=== PATIENT | female | born 1955 | race Hispanic/Latino ===

== ENCOUNTER → 2019-01-19 | Outpatient (CLI) | payer OTHER | END | disposition home or self-care (01) | LOC: RAH 09:21 | PROVIDERS: ATTEND Family Medicine | DX: Z12.31 Encounter for screening mammogram for malignant neoplasm of breast (principal) | CPT/HCPCS: 77067 ==

== ENCOUNTER → 2020-03-11 | Outpatient (CLI) | payer OTHER | END | disposition home or self-care (01) | LOC: LAB 12:45 | PROVIDERS: ATTEND Internal Medicine Cardiovascular Disease | DX: U07.1 COVID-19 (principal) | CPT/HCPCS: C9803; U0003 ==

== ENCOUNTER → 2021-09-03 | Outpatient (CLI) | payer BC | END | disposition home or self-care (01) | LOC: ICE 10:00 | PROVIDERS: ATTEND Hospitalist | DX: Z20.822 Contact with and (suspected) exposure to COVID-19 (principal) | CPT/HCPCS: 87635; C9803 ==

== ENCOUNTER → 2021-10-12 | Outpatient (CLI) | payer BC, OTHER | END | disposition home or self-care (01) | LOC: LAB 09:45 | PROVIDERS: ATTEND Hospitalist | DX: Z20.822 Contact with and (suspected) exposure to COVID-19 (principal) | CPT/HCPCS: 87426 ==

== ENCOUNTER → 2021-11-10 | Outpatient (CLI) | payer OTHER | END | disposition home or self-care (01) | LOC: LAB 12:28 | PROVIDERS: ATTEND Hospitalist | DX: U07.1 COVID-19 (principal) | CPT/HCPCS: 87426 ==

== ENCOUNTER → 2022-02-24 | Outpatient (CLI) | payer BC, OTHER | END | disposition home or self-care (01) | LOC: RAH 07:57 | PROVIDERS: ATTEND Family Medicine | DX: Z12.31 Encounter for screening mammogram for malignant neoplasm of breast (principal) | CPT/HCPCS: 77067 ==

== ENCOUNTER 2022-09-18 21:59 | Emergency (ER) | payer BC ==
[~2022-09-18] VITALS: Ht 154.9 cm; Wt 81.2 kg
[2022-09-18 22:59] LABS: APPEARANCE,URINE CLEAR (CLEAR); BILIRUBIN,URINE NEGATIVE (NEGATIVE); COLOR,URINE LIGHT-YELLOW (YELLOW); GLUCOSE, URINE (UA) NEGATIVE (NEGATIVE); KETONES,URINE NEGATIVE (NEGATIVE); LEUKOCYTE ESTERASE ,URINE 500 Leu/uL (NEGATIVE); NITRATE,URINE NEGATIVE (NEGATIVE); OCCULT BLOOD,URINE NEGATIVE (NEGATIVE); PROTEIN,URINE NEGATIVE (NEGATIVE); UROBILINOGEN,URINE 0.2 mg/dL (0.2-1.0)
[2022-09-18 23:17] LABS: MUCUS,URINE RARE LPF (None Seen); SQUAMOUS EPITHELIAL CELL,UR RARE /HPF (0-2); WBC,URINE 51-100 /HPF (0-1)
[2022-09-18 23:21] LABS: BASOPHILS % (AUTO) 0.5 % (0.0-5.0); EOSINOPHILS % (AUTO) 2.5 % (0.0-8.0); HEMATOCRIT 43.1 % (36-48); LYMPHOCYTES % (AUTO) 37.7 % (21.0-51.0); MEAN CORPUSCULAR HEMOGLOBIN 30.6 pg (27.0-33.0); MEAN CORPUSCULAR HGB CONC 32.9 g/dL (32.0-36.0); MEAN CORPUSCULAR VOLUME 92.9 fL (79-99); MONOCYTES % (AUTO) 7.1 % (3.0-13.0); NEUTROPHILS % (AUTO) 51.8 % (40.0-77.0); PLATELET COUNT (AUTO) 275 K/uL (130-400); RED BLOOD CELL COUNT(AUTO) 4.64 MIL/uL (4.00-5.50); RED CELL DISTRIBUTION WIDTH 13.5 % (11.0-15.5); WHITE BLOOD COUNT (AUTO) 7.7 K/uL (4.8-10.8)
[2022-09-18] MEDS ORDERED: ONDANSETRON 4MG INJ IVP ONE (23:30)
[2022-09-18] MEDS ORDERED: MORPHINE 4 MG SYG IVP ONE (23:30)
[2022-09-18] MEDS ORDERED: CEFTRIAXONE 2GM VIAL IVPB ONE (23:30)
[2022-09-18] MEDS ORDERED: 0.9%NACL 1000ML 1,000 ML IV SCH (23:30)
[2022-09-18 23:36] LABS: CREATININE 1.1 mg/dL (0.5-1.5); POTASSIUM 4.2 mmol/L (3.5-5.1)
[2022-09-18 23:41] LABS: ALBUMIN 3.9 g/dL (3.5-5.0); TOTAL PROTEIN, SERUM 8.6 g/dL (6.0-8.3)
[2022-09-18] MEDS ORDERED: IOHEXOL-350 75 ML VIAL IV ONE (23:49)
[2022-09-19] MEDS ORDERED: CEPH500B PO (02:39)
[2022-09-19 04:28] VITALS: BP 118/79
== END 2022-09-19 04:39 | disposition home or self-care (01) ==
LOC: EDH 21:59
DX: N39.0 Urinary tract infection, site not specified (principal); Z90.49 Acquired absence of other specified parts of digestive tract; Z20.822 Contact with and (suspected) exposure to COVID-19
CPT/HCPCS: 99284; 74178; 96365; 96375; 87635; 84484; 80053; 83690; 85025; 87088; 87804 ×2; 83605; 81001; 36415; 93005; 96366; C9803; J7030; J0696; J2405; J2270; Q9967

== ENCOUNTER → 2024-02-17 | Outpatient (CLI) | payer BC, MEDICARE ==
[~2024-02-17] MED LIST: CEPH500B PO
--- NOTE | 2024-02-17 10:00 | HMCIMG ---
MAMMO SCREENING BILATERAL HISTORY: Screening mammogram. COMPARISON: 02/24/2022 TECHNIQUE: Bilateral screening mammogram with CAD was performed with craniocaudal and mediolateral oblique projections. FINDINGS: The breasts are heterogeneous dense, which may obscure small masses. There is no evidence of a dominant mass, or suspicious microcalcification. There is no evidence of nipple retraction or skin thickening. IMPRESSION: 1. Stable mammogram. Patient was entered into a reminder system with a target due date for their next mammogram. BI-RADS: CATEGORY 2: BENIGN FINDINGS Recommend monthly self breast exam as well as annual clinical examination. A negative x-ray should not delay biopsy if a dominant or clinically suspicious mass is present, since 8-10% of cancers are not identified by mammography. Dense breasts particularly, may obscure an underlying neoplasm. Some of these may be detected clinically and therefore, clinical examination is an essential part of breast evaluation.
== END | disposition home or self-care (01) ==
LOC: RAH 07:57
PROVIDERS: ATTEND Family Medicine
DX: Z12.31 Encounter for screening mammogram for malignant neoplasm of breast (principal); R92.333 Mammographic heterogeneous density, bilateral breasts
CPT/HCPCS: 77067

== ENCOUNTER 2024-04-06 21:05 | Emergency (ER) | payer BC, MEDICARE ==
[~2024-04-06] VITALS: Ht 154.9 cm; Wt 74.4 kg
--- NOTE | 2024-04-06 21:31 | ERN ---
ED Note History of Present Illness Stated Complaint: HTN, BLURRY VISION Chief Complaint: Blurred/Double Vision Time Seen by MD: 21:07 Time Seen by Midlevel: 21:07 Dictation: The patient is a 68-year-old female with a history of prediabetes, cholecystec michelle, recently started on lisinopril 20 mg for elevated blood pressure 1 week ago who presents to the emergency department with complaints of frontal nontraumatic headache associated with dizziness although reports dizziness started since the beginning of March. Patient reports she checked her blood pressure around 5:00 p.m. and was 150/76 so she decided to take her lisinopril b ut reports no improving blood pressure. Patient also reports she feels like she can not concentrate her eyes on further objects. Reports no blurry vision or double vision on items right in front of her. Patient denies any chest pain, shortness of breath, fevers, use of blood thinners, nausea or vomiting. Allergies: Coded Allergies: No Known Drug Allergies (Unverified Allergy, Unknown, 02/28/14) Home Meds Active Scripts Loratadine (Loratadine) 10 Mg Tablet, 1 TAB PO DAILY for allergy symptoms for 30 Days, #30 TAB 0 Refills Prov:DARION WOODWARD SMALL ENGINE SPECIALIST 04/07/24 Fluticasone Propionate (Flonase Nasal [place]) 50 Mcg/Actuation [place], 2 SPRAY NS DAILY, #16 GM 0 Refills Prov:DARION WOODWARD SMALL ENGINE SPECIALIST 04/07/24 Amoxicillin/Potassium Clav (Amox Tr-K Clv 875-125 mg Tab) 875 Mg-125 Mg Tablet, 1 TAB PO BID for 10 Days, #20 TAB 0 Refills Prov:DARION WOODWARD SMALL ENGINE SPECIALIST 04/07/24 Cephalexin Monohydrate (Keflex) 500 Mg Cap, 500 MG PO QID for 7 Days, #28 CAP Prov:DORIS TUBBS Sr., MD 09/19/22 Past Medical History Past Medical History: No Pertinent History, Other Additional Past Medical Hx: PRE DM Surgical History: Cholecystectomy RN Note Reviewed/Agreed w/PFSH: Yes Review of System Dictation Constitutional: Negative for fever,chills, and weight loss Eyes: Negative for injury, pain,redness, and discharge ENT: Negative for injury,pain or swelling Cardiovascular: Negative for chest pain, palpitations, and edema Respiratory: Negative for shortness of breath, and wheezing, positive for cough Abdomen/GI: Negative for abdominal pain, nausea, vomiting, diarrhea, and constipation Back: Negative for injury and pain : Negative for injury, bleeding and discharge MS/Extremity: Negative for injury and deformity Skin: Negative for rash, and discoloration Neuro: Negative for weakness, numbness, tingling, and seizure positive for headache, dizziness Psych: Negative for suicide ideation, homicidal ideation, and hallucinations Initial Vital Sign VS Vital Signs Date Time Temp Pulse Resp B/P (MAP) Pulse Ox O2 Delivery O2 Flow Rate FiO2 04/06/24 21:06 97.3 90 20 164/105 99 Room Air 04/07/24 01:20 0 21 Physical Exam Dictation Vital Signs reviewed General Appearance: Alert, oriented x 3, no acute distress, well developed, nourished. Head and Face: non-traumatic. Eyes: PERRL, pink conjunctivas, eyelid no trauma, anterior chamber with arcus senilis. Ears: Pinnas intact and no signs of trauma or erythema ear canals clear and no discharge TM no erythema Nose: No discharge, no bleeding. Oropharynx: Mouth normal, tongue pink. pharynx clear,no erythema, tonsils no exudates, no abscesses noted, mucous membrane moist Neck: Supple, non-tender, no thyromegaly, no masses, no JVD, no bruits Breast:Deferred Chest:No tenderness, no crepitus, no paradoxical movement, no retractions Lungs:Clear, well-ventilated, symmetric, no rales, no wheezing, no rhonchi, no stridor, good breath sounds bilaterally Heart: Regular rate, regular rhythm, no murmur, no gallops Vascular: no peripheral edema, Abdomen: Soft, positive bowel sounds, nondistended, no guarding, nontender, no rebound, no masses no hepatomegaly, no splenomegaly, no Almanza's sign, no hernias. Rectal: Deferred Genital: Deferred Neurological: Normal speech, motor function intact, sensory function intact , upper extremities equal and strength, lower extremities equal and strength, no facial droop, no slurred speech, NIH 0 Musculoskeletal: Neck nontender, full range of motion, back nontender, full range of motion, Extremities: nontender, full range of motion Skin: Color pink, dry, no turgor, no rash, no lacerations, no abrasions, no contusions. Lymphatic: Deferred Results (Laboratory/Radiology) Laboratory/Radiology Laboratory Tests Test 04/06/24 21:36 04/06/24 21:43 White Blood Count 7.5 K/uL (4.8-10.8) Red Blood Count 4.50 MIL/uL (4.00-5.50) Hemoglobin 13.9 g/dL (12.0-16.0) Hematocrit 42.1 % (36-48) Mean Corpuscular Volume 93.6 fL (79-99) Mean Corpuscular Hemoglobin 30.9 pg (27.0-33.0) Mean Corpuscular Hemoglobin Concent 33.0 g/dL (32.0-36.0) Red Cell Distribution Width 12.4 % (11.0-15.5) Platelet Count 309 K/uL (130-400) Mean Platelet Volume 9.8 fL (7.5-10.5) Immature Granulocyte % (Auto) 0.1 % (0-1) Neutrophils (%) (Auto) 54.7 % (40.0-77.0) Lymphocytes (%) (Auto) 36.5 % (21.0-51.0) Monocytes (%) (Auto) 5.7 % (3.0-13.0) Eosinophils (%) (Auto) 2.5 % (0.0-8.0) Basophils (%) (Auto) 0.5 % (0.0-5.0) Neutrophils # (Auto) 4.1 K/uL (1.8-7.7) Lymphocytes # (Auto) 2.7 K/uL (1.0-4.8) Monocytes # (Auto) 0.4 K/uL (0.1-1.0) Eosinophils # (Auto) 0.19 K/uL (0.00-0.70) Basophils # (Auto) 0.04 K/uL (0.00-0.20) Absolute Immature Granulocyte (auto 0.01 K/uL (0-1) Nucleated Red Blood Cells 0.0 % (0.0-0.19) Sodium Level 138 mmol/L (136-145) Potassium Level 3.9 mmol/L (3.5-5.1) Chloride Level 102 mmol/L (101-111) Carbon Dioxide Level 29 mmol/L (21-32) Blood Urea Nitrogen 18 mg/dL (7-18) Creatinine 0.8 mg/dL (0.5-1.0) Glomerular Filtration Rate Calc 81 mL/min (>90) Random Glucose 113 mg/dL (70-105) H Total Calcium 9.3 mg/dL (8.5-10.1) Total Creatine Kinase 90 U/L (21-232) Troponin I High Sensitivity < 4 ng/L (4-50) L B-Type Natriuretic Peptide 13 pg/mL (0-100) Urine Color COLORLESS (YELLOW) Urine Appearance CLEAR (CLEAR) Urine pH 5.5 (5.0-8.0) Urine Specific [place] 1.012 (1.001-1.031) Urine Protein NEGATIVE mg/dL (NEGATIVE) Urine Glucose (UA) NEGATIVE mg/dL (NEGATIVE) Urine Ketones NEGATIVE mg/dL (NEGATIVE) Urine Occult Blood NEGATIVE (NEGATIVE) Urine Nitrate NEGATIVE (NEGATIVE) Urine Bilirubin NEGATIVE mg/dL (NEGATIVE) Urine Urobilinogen 0.2 mg/dL (0.2-1.0) Urine Leukocyte Esterase NEGATIVE Aiden/uL REASON: headache ORDERING PHYSICIAN: DARION WOODWARD PROCEDURE: HEAD WO - CT HEAD/BRAIN W/O CONTRAST CT HEAD/BRAIN W/O CONTRAST HISTORY: Headaches COMPARISON: None TECHNIQUE: Multiple sequential axial images of the head were obtained from the base of the skull through vertex. Patient was not given contrast through intravenous route. FINDINGS: The ventricles and extraventricular CSF spaces are nondilated for patient's age. There is no midline shift, mass effect or herniation. No acute intracranial bleed is seen. There are bilateral ethmoid and maxillary sinusitis with mucoperiosteal thickening. IMPRESSION: 1. No acute intracranial bleed is seen. Bilateral ethmoid and maxillary sinusitis. CT was performed with one or more following dose reduction techniques: automated exposure control, adjustment of the mA and kv according to patient's size, or use of a iterative reconstruction technique. Labs Reviewed?: Yes EKG: (+) rhythm (Sinus rhythm) EKG Comment: Date:04/06/2024 Time:2134 Ventricular rate:72 WV interval:149 QRS duration:87 QT/QTc:384 EKG interpretation: Sinus rhythm Reviewed by ED Attending no STEMI ED Course ED Course Orders Procedure Category Date Status Time Cbc With Differential LAB 04/06/24 Complete 21:24 Chest 1vw RAD 04/06/24 Taken 21:24 12 Lead Ekg Tracing- EKG 04/06/24 Complete Technical 21:24 0.9%Nacl 1000ml (Ns PHA 04/06/24 Complete 1000ml) 21:30 Acetaminophen 500mg PHA 04/06/24 Complete Tab (Tylenol 500mg T 21:30 Creatine Kinase, Total LAB 04/06/24 Complete 21:24 Troponin I High LAB 04/06/24 Complete Sensitivity 21:24 Urinalysis Profile LAB 04/06/24 Complete 21:24 Basic Metabolic Panel LAB 04/06/24 Complete 21:24 Ct Head/Brain W/O CT 04/06/24 Resulted Contrast 21:24 Covid19 (Sars Antigen LAB 04/06/24 Logged Rapid) 21:24 Influenza Type A & B, LAB 04/06/24 Logged Rapid 21:24 B-Type Natriuretic LAB 04/06/24 Complete Peptide 21:24 Metoclopramide 10 PHA 04/06/24 Complete Mg/2 Ml Vial (Reglan 1 21:30 Diphenhydramine Hcl PHA 04/06/24 Complete (Benadryl Inj) 21:30 Benzonatate 100 Mg PHA 04/06/24 Complete Capsule (Tessalon 100 23:30 Dexamethasone 4mg/Ml PHA 04/07/24 Complete 1ml Vial (Dexametha 00:00 Meclizine Hcl 25 Mg PHA 04/07/24 Complete (Antivert 25 Mg) 01:00 Current Medications Medications (Trade) Dose Ordered Sig/Won Route PRN Reason Start Time Stop Time Status Last Admin Dose Admin Acetaminophen (TYLenol 500MG TAB) 1,000 mg ONCE ONCE PO 04/06/24 21:30 04/06/24 21:31 DC 04/07/24 01:13 Benzonatate (Tessalon 100mg Caps) 100 mg ONCE ONCE PO 04/06/24 23:30 04/06/24 23:31 DC 04/07/24 01:12 Dexamethasone Sodium Phosphate (dexaMETHasone 4MG/ML 1ML VIAL) 6 mg ONCE ONCE IVP 04/07/24 00:00 04/07/24 00:01 DC 04/07/24 01:13 Diphenhydramine HCl (BENAdryl INJ) 25 mg ONCE ONCE IV 04/06/24 21:30 04/06/24 21:31 DC 04/07/24 01:13 Meclizine HCl (ANTIvert 25 mg) 25 mg ONCE ONCE PO 04/07/24 01:00 04/07/24 01:01 DC 04/07/24 01:12 Metoclopramide HCl (regLAN 10MG IV) 10 mg ONCE ONCE IVP 04/06/24 21:30 04/06/24 21:31 DC 04/07/24 01:13 Sodium Chloride 1,000 ml @ 0 mls/hr ONCE ONCE IV 04/06/24 21:30 04/06/24 21:31 DC 04/07/24 01:14 Vital Signs Date Time Temp Pulse Resp B/P (MAP) Pulse Ox O2 Delivery O2 Flow Rate FiO2 04/07/24 01:20 98.1 66 16 155/57 98 Room Air* 0 21 04/06/24 21:06 97.3 90 20 164/105 99 Room Air Medical Decision Making [facility] The patient is a 68-year-old female with a history of prediabetes, cholecystectomy, recently started on lisinopril 20 mg for elevated blood pressure 1 week ago who presents to the emergency department with complaints of frontal nontraumatic headache associated with dizziness although reports dizziness started since the beginning of March. Patient reports she checked her blood pressure around 5:00 p.m. and was 150/76 so she decided to take her l isinopril but reports no improving blood pressure. Patient also reports she feels like she can not concentrate her eyes on further objects. Reports no blurry vision or double vision on items right in front of her. Patient denies any chest pain, shortness of breath, fevers, use of blood thinners, nausea or vomiting. CBC showed no leukocytosis, no anemia, chemistry showed no electrolyte imbalance, negative troponin, leukocyte esterase unremarkable. CT head showed no acute intracranial bleeding, sinusitis. Chest x-ray with no acute pathology, EKG with no STEMI. Patient reports no longer having any headache. Continues neurologically intact. Patient's cough probably related to lisinopril which she was seen by telemedicine and told to stop it. Patient in no acute distress, nontoxic appearance will be discharged to follow up with PCP. Differential diagnosis: Pneumonia, ACS, intracranial hemorrhage, electrolyte imbalance, dehydration, drug reactions Need for hospitalization: Patient does not meet criteria for hospitalization. There are no social concerns with this patient. DX & DISP Disposition: Discharge Departure Impression: Primary Impression: Headache Additional Impressions: Cough due to KULDEEP inhibitor, Sinusitis Condition: Stable Scripts Loratadine (Loratadine) 10 Mg Tablet 1 TAB PO DAILY for allergy symptoms for 30 Days, #30 TAB 0 Refills Prov: DARION WOODWARD NICOLASA 04/07/24 Fluticasone Propionate (Flonase Nasal [place]) 50 Mcg/Actuation [place] 2 SPRAY NS DAILY, #16 GM 0 Refills Prov: DARION WOODWARD NICOLASA 04/07/24 Amoxicillin/Potassium Clav (Amox Tr-K Clv 875-125 mg Tab) 875 Mg-125 Mg Tablet 1 TAB PO BID for 10 Days, #20 TAB 0 Refills Prov: DARION WOODWARD NICOLASA 04/07/24 Additional Instructions: Please follow up with your primary doctor in 1-2 days. Please return to ER if symptoms worsen. Your cough is probably due to the lisinopril. Take medications as prescribed. FOLLOW-UP WITH PRIMARY CARE PROVIDER IN 1 TO 2 DAYS. TAKE MEDICATIONS DIRECTED HERE IN THE EMERGENCY ROOM. OKAY TO CONTINUE HOME MEDICATIONS UNLESS OTHERWISE DISCUSSED DURING YOUR VISIT IN THE EMERGENCY ROOM TODAY. RETURN TO YOUR NEAREST EMERGENCY ROOM IF SYMPTOMS WORSEN OR IF THERE IS NO IMPROVEMENT. CALL 911 IF YOU NEED IMMEDIATE ASSISTANCE. TAKE TYLENOL OR MOTRIN [id number] NEEDED AND IF NO CONTRAINDICATIONS ARE PRESENT. INCREASE ORAL HYDRATION. A WOUND CULTURE OR URINE CULTURE WAS ORDERED HERE IN THE EMERGENCY ROOM DEPARTMENT PLEASE FOLLOW-UP WITH PRIMARY CARE PROVIDER AND ADVISE THEM TO GET REPEAT PORTS FROM OUR FACILITY. IF YOU HAD ANY KULDEEP WRAP/SPLINTS THAT WERE APPLIED HERE, PLEASE DO NOT REMOVE THEM UNTIL YOU SEE YOUR PRIMARY CARE OR SPECIALTY. Referrals: WILLIAM PEACE DO (PCP) Time of Disposition: 02:25 I have reviewed the case, and I agree with, Diagnosis and Plan DARION WOODWARD NICOLASA Apr 06, 2024 21:31
--- NOTE | 2024-04-06 21:39 | EKG ---
[facility] Test Date: 2024-04-06 Test Time: 21:35:49 Pat Name: WILL MONTES Department: [facility] Room: Gender: F Numerical Tool Programmer: [id number] : 1955 Requested By: DARION WOODWARD Order Number: [id number] Reading MD: Norma Kenny Measurements Intervals [place] Rate: 72 P: 32 KS: 149 QRS: -24 QRSD: 87 T: 4 QT: 384 QTc: 421 Interpretive Statements Sinus rhythm Low voltage, precordial leads Poor R wave progression Compared to ECG 09/18/2022 22:48:26 Low QRS voltage now present Left ventricular hypertrophy now present Q waves now present Electronically Signed On 04-09-2024 15:58:05 BOILERS AND PRESSURE VESSELS INSPECTOR by Norma Kenny Please click the below link to view image of tracing.
[2024-04-06 21:42] LABS: BASOPHILS # (AUTO) 0.04 K/uL (0.00-0.20); BASOPHILS % (AUTO) 0.5 % (0.0-5.0); EOSINOPHILS # (AUTO) 0.19 K/uL (0.00-0.70); EOSINOPHILS % (AUTO) 2.5 % (0.0-8.0); HEMATOCRIT 42.1 % (36-48); IMMATURE GRANULOCYTE ABSOLUTE 0.01 K/uL (0-1); LYMPHOCYTES # (AUTO) 2.7 K/uL (1.0-4.8); LYMPHOCYTES % (AUTO) 36.5 % (21.0-51.0); MEAN CORPUSCULAR HEMOGLOBIN 30.9 pg (27.0-33.0); MEAN CORPUSCULAR VOLUME 93.6 fL (79-99); MONOCYTES # (AUTO) 0.4 K/uL (0.1-1.0); MONOCYTES % (AUTO) 5.7 % (3.0-13.0); NEUTROPHILS # (AUTO) 4.1 K/uL (1.8-7.7); NEUTROPHILS % (AUTO) 54.7 % (40.0-77.0); PLATELET COUNT (AUTO) 309 K/uL (130-400); RED CELL DISTRIBUTION WIDTH 12.4 % (11.0-15.5); WHITE BLOOD COUNT (AUTO) 7.5 K/uL (4.8-10.8)
[2024-04-06 21:51] LABS: CREATININE 0.8 mg/dL (0.5-1.0); POTASSIUM 3.9 mmol/L (3.5-5.1)
[2024-04-06 22:02] LABS: B-TYPE NATRIURETIC PEPTIDE 13 pg/mL (0-100)
--- NOTE | 2024-04-06 22:08 | HMCIMG ---
CT HEAD/BRAIN W/O CONTRAST HISTORY: Headaches COMPARISON: None TECHNIQUE: Multiple sequential axial images of the head were obtained from the base of the skull through vertex. Patient was not given contrast through intravenous route. FINDINGS: The ventricles and extraventricular CSF spaces are nondilated for patient's age. There is no midline shift, mass effect or herniation. No acute intracranial bleed is seen. There are bilateral ethmoid and maxillary sinusitis with mucoperiosteal thickening. IMPRESSION: 1. No acute intracranial bleed is seen. Bilateral ethmoid and maxillary sinusitis. CT was performed with one or more following dose reduction techniques: automated exposure control, adjustment of the mA and kv according to patient's size, or use of a iterative reconstruction technique.
[2024-04-06 22:20] LABS: APPEARANCE,URINE CLEAR (CLEAR); BILIRUBIN,URINE NEGATIVE (NEGATIVE); COLOR,URINE COLORLESS (YELLOW); GLUCOSE, URINE (UA) NEGATIVE (NEGATIVE); KETONES,URINE NEGATIVE (NEGATIVE); LEUKOCYTE ESTERASE ,URINE NEGATIVE Leu/uL (NEGATIVE); NITRATE,URINE NEGATIVE (NEGATIVE); OCCULT BLOOD,URINE NEGATIVE (NEGATIVE); PH,URINE 5.5 (5.0-8.0); PROTEIN,URINE NEGATIVE (NEGATIVE); UROBILINOGEN,URINE 0.2 mg/dL (0.2-1.0)
[2024-04-06 22:31] LABS: ADD UA MICROSCOPIC NO
[2024-04-07] MEDS ORDERED: AMOX1TAB16 PO (01:11)
[2024-04-07] MEDS ORDERED: FLUT16H NS (01:11)
[2024-04-07] MEDS ORDERED: LORA10TA7 PO (01:11)
[2024-04-07] MEDS: mecliZINE HCL 25 MG TABLET PO ONE (01:12)
[2024-04-07] MEDS: BENZONATATE 100 MG CAPSULE PO ONE (01:12)
[2024-04-07] MEDS: metoCLOPRAmide 10 MG/2 ML VIAL IVP ONE (01:13)
[2024-04-07] MEDS: DiphenhydrAMINE HCL 50 MG/ML VIAL IV ONE (01:13)
[2024-04-07] MEDS: dexaMETHasone SOD PHOSPHATE 4 MG/ML 1ML VIAL IVP ONE (01:13)
[2024-04-07] MEDS: acetaMINOPHEN 500 MG TABLET PO ONE (01:13)
[2024-04-07] MEDS: 0.9%NACL 1000ML 1,000 ML IV ONE (01:14)
[2024-04-07 01:20] VITALS: TEMP 98.1
[2024-04-07 02:47] VITALS: BP 147/48; PULSE 65; RESP 16; O2SAT 98
[2024-04-07 02:55] LABS: COVID19 (SARS ANTIGEN RAPID) PRESUMPTIVE NEGATIVE (NEGATIVE); INFLUENZA TYPE A Negative For Type A (NEGATIVE); INFLUENZA TYPE B Negative For Type B (NEGATIVE)
--- NOTE | 2024-04-07 08:15 | HMCIMG ---
PORTABLE CHEST RADIOGRAPH INDICATION: cough COMPARISON: 12/13/2016 FINDINGS: Heart size is normal. Mild calcific plaque is present along the aortic arch klein. The pulmonary vascularity and ashley appear normal. No abnormal pulmonary parenchymal opacity or consolidation identified. No significant pleural effusion noted. No pneumothorax detected. IMPRESSION: No radiographic evidence for any acute cardiopulmonary process.
== END 2024-04-07 03:11 | disposition home or self-care (01) ==
LOC: EDH 21:05
DX: R51.9 Headache, unspecified (principal); R05.9 Cough, unspecified; J32.9 Chronic sinusitis, unspecified; T46.4X5A Adverse effect of angiotensin-converting-enzyme inhibitors, initial encounter; Z90.49 Acquired absence of other specified parts of digestive tract; Z79.899 Other long term (current) drug therapy; Z20.822 Contact with and (suspected) exposure to COVID-19
CPT/HCPCS: 99284; 70450; 71045; 87426; 82550; 84484; 80048; 83880; 85025; 87804 ×2; 81003; 36415; 93005; 96374; 96375; 96361; J1100; J1200; J2765

== ENCOUNTER 2024-07-30 21:02 | Emergency (ER) | payer BC, MEDICARE ==
[~2024-07-30] VITALS: Ht 154.9 cm; Wt 75.3 kg
[~2024-07-30 21:02] MED LIST changes: +AMOX1TAB16 PO; +FLUT16H NS; +LORA10TA7 PO
--- NOTE | 2024-07-30 21:50 | ERN ---
General Chief Complaint: Mechanical Fall Stated Complaint: FALL Time Seen by MD: 21:15 Source: patient History of Present Illness Initial Comments Patient is relatively healthy 68-year-old female who was walking down some stairs at [employer] when she tripped lost her balance and fell the last three steps landing on concrete. There was no LOC. she is complaining of left hip pain b ilateral knee pain and left ankle pain. Allergies: Coded Allergies: No Known Drug Allergies (Unverified Allergy, Unknown, 02/28/14) Home Meds Active Scripts Loratadine (Loratadine) 10 Mg Tablet, 1 TAB PO DAILY for allergy symptoms for 30 Days, #30 TAB 0 Refills Prov:DARION WOODWARD NEW CAR MAKE READY MECHANIC 04/07/24 Fluticasone Propionate (Flonase Nasal [place]) 50 Mcg/Actuation [place], 2 SPRAY NS DAILY, #16 GM 0 Refills Prov:DARION WOODWARD NEW CAR MAKE READY MECHANIC 04/07/25 Amoxicillin/Potassium Clav (Amox Tr-K Clv 875-125 mg Tab) 875 Mg-125 Mg Tablet, 1 TAB PO BID for 10 Days, #20 TAB 0 Refills Prov:DARION WOODWARD NEW CAR MAKE READY MECHANIC 04/07/24 Cephalexin Monohydrate (Keflex) 500 Mg Cap, 500 MG PO QID for 7 Days, #28 CAP Prov:DORIS TUBBS Sr., MD 09/19/22 Past Medical History Past Medical History: Hypertension, Other Medical History Other: PRE DM Past Surgical History: Cholecystectomy Constitutional: (-) chills, (-) diaphoresis, (-) fever, (-) malaise, (-) weakness, (-) other documentation EENTM: (-) eye pain, (-) blurred vision, (-) tearing, (-) double vision, (-) ear pain, (-) ear discharge, (-) nose pain, (-) nose congestion, (-) throat pain, (-) Throat swelling, (-) mouth pain, (-) tooth pain, (-) mouth swelling, (-) other documentation Respiratory: (-) cough, (-) orthopnea, (-) short of breath, (-) stridor, (-) wheezing, (-) other documentation Gastrointestinal/Abdominal: (-) nausea, (-) vomiting, (-) diarrhea, (-) abd ominal pain, (-) abdominal distention, (-) constipation, (-) rectal bleeding, (- ) dark stool/melena, (-) other documentation Musculoskeletal: (-) Neck pain, (-) back pain, (-) Flank Pain, (-) joint pain, (-) joint swelling, (-) muscle pain, (-) muscle stiffness, (-) gout, (-) other documentation Skin: (-) laceration, (-) contusion, (-) abrasion, (-) abscess, (-) rash, (-) change in color, (-) change in hair, (-) change in nails, (-) diaphoresis, (-) dryness, (-) other documentation Physical Exam General Appearance: (+) no apparent distress Orientation: (+) alert, (+) oriented x 3 Head/Face Trauma: No Eye: bilateral eye normal inspection, bilateral eye PERRL, bilateral eye EOMI Ear, Nose, Throat: (+) hearing grossly normal, (+) normal ENT inspection Neck: (+) normal inspection, (+) supple, (+) full range of motion Respiratory: (+) chest non-tender, (+) lungs clear Heart: (+) regular, (+) no gallop Vascular: (+) no edema, (+) normal peripheral pulse Gastrointestinal: (+) soft, (+) non-tender, (+) bowel sound present Extremities Comment Patient's left ankle shows minimal swelling good pulses present no discoloration flexion extension and palpation along the left Achilles tendon show minimal pain. Patient's left knee is a negative anterior or posterior drawer sign. Also knee joint is stable to adduction or abduction indicating medial and lateral ligaments are intact. Patient does have pain in her left hip with p assive flexion and extension. However there are no obvious deformities. Patient's right knee has a similarly benign exam as the patient is left knee. MDM Plain films have been ordered for the patient's chest hip pelvis bilateral knees and ankles. Plain films of patient's left foot bilateral knees and pelvis are all negative for fractures and dislocations. Physical exam supports this finding. Patient can go home I talked to the patient about the best way to control the pain which is ibuprofen elevation and icing. The patient is glad there are no fractures and is happy to go home. ED Course Orders Procedure Category Date Status Time Chest 1vw RAD 07/30/24 Taken 21:17 Pelvis 1-2vws RAD 07/30/24 Taken 21:17 Knee 3vws Lt RAD 07/30/24 Taken 21:17 Knee 3vws Rt RAD 07/30/24 Taken 21:17 Ankle Comp 3vws Lt RAD 07/30/24 Taken 21:17 Vital Signs Date Time Temp Pulse Resp B/P (MAP) Pulse Ox O2 Delivery O2 Flow Rate FiO2 07/30/24 22:10 98.4 62 17 128/41 97 Room Air* 0 07/30/24 21:11 98.4 86 20 161/60 93 Room Air* 0 07/30/24 21:06 98.1 97 16 102/56 97 Room Air 0 DX & DISP Disposition: Discharge Departure Impression: Primary Impression: Fall (on) (from) other stairs and steps, initial encounter Additional Impression: Multiple leg contusions Condition: Stable Additional Instructions: Please follow-up with your primary care physician if after several days the pain has not improved. Again best that pain management would be icing the affected areas and taking ibuprofen. Referrals: WILLIAM PEACE DO (PCP) JANA RASMUSSEN MD July 30, 2024 21:50
[2024-07-30 23:23] VITALS: BP 135/50; PULSE 61; RESP 18; TEMP 98.2; O2SAT 96
--- NOTE | 2024-07-31 09:29 | HMCIMG ---
PELVIS 1-2VWS HISTORY: GLF COMPARISON: None TECHNIQUE: Frontal projection of the pelvis was obtained. FINDINGS: There is no acute displaced fracture or dislocation. Bilateral hip joint space narrowing are seen. Degenerative changes are seen. IMPRESSION: 1. Findings as described above.
--- NOTE | 2024-07-31 09:29 | HMCIMG ---
CHEST 1VW HISTORY: GLF COMPARISON: 04/06/2024 FINDINGS: A frontal projection of the chest was obtained. No acute pulmonary infiltrates is seen. The heart is normal in size. Mild degenerative changes are seen. Aortic calcifications are seen. IMPRESSION: 1. No acute pulmonary infiltrate is seen.
--- NOTE | 2024-07-31 09:46 | HMCIMG ---
ANKLE COMP 3VWS LT HISTORY: GLF COMPARISON: None TECHNIQUE: 3 images of left ankle were obtained. FINDINGS: There is no acute displaced fracture or dislocation. There is soft tissue swelling. There is a calcaneal spur. Degenerative changes are seen. IMPRESSION: 1. Findings as described above.
--- NOTE | 2024-07-31 09:47 | HMCIMG ---
KNEE 3VWS LT HISTORY: GLF COMPARISON: None TECHNIQUE: 3 images of left knee were obtained. FINDINGS: There is no acute displaced fracture or dislocation. Degenerative changes are seen. IMPRESSION: 1. Findings as described above.
--- NOTE | 2024-07-31 09:47 | HMCIMG ---
KNEE 3VWS RT HISTORY: GLF COMPARISON: None TECHNIQUE: 3 images of right knee were obtained. FINDINGS: There is no acute displaced fracture or dislocation. Chondrocalcinosis changes are seen. Degenerative changes are seen. IMPRESSION: 1. Findings as described above.
== END 2024-07-30 23:29 | disposition home or self-care (01) ==
LOC: EDH 21:02
DX: S80.12XA Contusion of left lower leg, initial encounter (principal); S80.11XA Contusion of right lower leg, initial encounter; I10 Essential (primary) hypertension; Z90.49 Acquired absence of other specified parts of digestive tract; W18.39XA Other fall on same level, initial encounter; Y93.89 Activity, other specified; Y92.89 Other specified places as the place of occurrence of the external cause; Y99.8 Other external cause status
CPT/HCPCS: 71045; 72170; 73562; 73610; 99283

== ENCOUNTER 2024-09-17 06:17 | Observation (INO) | payer BC, MEDICARE ==
[2024-09-12 10:33] LABS: IMMATURE GRANULOCYTE ABSOLUTE 0.02 K/uL (0-1); NUCLEATED RED BLOOD CELLS 0.0 % (0.0-0.19); PLATELET COUNT (AUTO) 304 K/uL (130-400); RED BLOOD CELL COUNT(AUTO) 4.51 MIL/uL (4.00-5.50); RED CELL DISTRIBUTION WIDTH 13.1 % (11.0-15.5); WHITE BLOOD COUNT (AUTO) 6.7 K/uL (4.8-10.8)
[2024-09-12 10:35] LABS: APPEARANCE,URINE CLEAR (CLEAR); GLUCOSE, URINE (UA) NEGATIVE (NEGATIVE); LEUKOCYTE ESTERASE ,URINE 75 Leu/uL (NEGATIVE); NITRATE,URINE NEGATIVE (NEGATIVE); OCCULT BLOOD,URINE NEGATIVE (NEGATIVE)
[2024-09-12 10:36] VITALS: BP 177/72; PULSE 69; RESP 17; TEMP 97.3
[2024-09-12 10:38] LABS: ADD UA MICROSCOPIC YES
[2024-09-12 10:57] LABS: SQUAMOUS EPITHELIAL CELL,UR FEW /HPF (0-2)
--- NOTE | 2024-09-12 12:55 | EKG ---
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
[~2024-09-17] VITALS: Ht 154.9 cm; Wt 74.0 kg
[2024-09-17] VITALS (22 sets, daily range): BP systolic 110–191; BP diastolic 58–89; PULSE 60–111; RESP 15–20; TEMP 97.3–98.2; O2SAT 94–95
[2024-09-17] MEDS: TRANEXAMIC ACID 1000MG/10ML IV ONE
[~2024-09-17 06:17] MED LIST changes: -AMOX1TAB16 PO; -CEPH500B PO; +ESOM20CA31 PO; -FLUT16H NS; +IBUP-2077 PO; -LORA10TA7 PO; +MONT-39 PO
[2024-09-17] MEDS ORDERED: MIDAZOLAM HCL 1 MG/ML 2ML VIAL ONE (08:37)
[2024-09-17] MEDS ORDERED: LIDOCAINE PF 100MG/5ML (2%) SYRINGE 5ML ONE (08:37)
[2024-09-17] MEDS: TRANEXAMIC ACID 1000MG/10ML ONE (09:00)
[2024-09-17] MEDS ORDERED: HYDROcodone/APAP 5/325 1 TAB TABLET PO PRN (09:30)
[2024-09-17] MEDS ORDERED: CYCLOBENZAPRINE HCL 10 MG TABLET PO PRN (09:30)
[2024-09-17] MEDS ORDERED: CALCIUM CARB 500MG PO PRN (09:30)
[2024-09-17] MEDS ORDERED: PoTASSium chloRIDE 20MEQ ER 20 MEQ ERTAB PO PRN (09:30)
[2024-09-17] MEDS ORDERED: FERROUS FUMARATE 324 MG TABLET PO PRN (09:30)
[2024-09-17] MEDS ORDERED: PoTASSium chl 10% ELIXIR 20MEQ 20 MEQ/15 ML UDCUP PO PRN (09:30)
[2024-09-17] MEDS ORDERED: GLYCOPYRROLATE 0.2 MG/ML 5 ML VIAL ONE (10:18)
[2024-09-17] MEDS ORDERED: NEOSTIGMINE METHYLSULFATE 1MG/ML IV ONE (10:18)
--- NOTE | 2024-09-17 10:30 | DS ---
Discharge Summary Hospital Course Summary: The patient was admitted to the hospital postoperatively on 09/17/2024 after undergoing right total knee arthroplasty. They did well with routine postoperative pain control. They worked well with physical therapy. They developed some acute blood loss anemia but remained asymptomatic. The hospital course was otherwise uncomplicated. They were subsequently able to be discharged on postoperative day [] once discharge arrangements were made with inpatient rehab. Senior Medical Billing Specialist(s): None Procedure(s): Right total knee arthroplasty, 09/17/2024 Assessment/Plan: ASSESSMENT: Status post right total knee arthroplasty Acute blood loss anemia PLAN: See discharge instructions Home Medications: Reported Medications Esomeprazole Magnesium (Nexium) 20 Mg Capsule.dr, 20 MG PO AM, CAP 09/12/24 Montelukast Sodium (Montelukast Sodium) 10 Mg Tablet, 10 MG PO HS, TAB 09/12/24 Ibuprofen (Ibuprofen 800 mg Tab) 800 Mg Tab, 800 MG PO AD PRN for PAIN, TAB 09/12/24 Discontinued Scripts Loratadine (Loratadine) 10 Mg Tablet, 1 TAB PO DAILY for allergy symptoms for 30 Days, #30 TAB 0 Refills Prov:DARION WOODWARD CHEMISTRY INSTRUCTOR 04/07/24 Fluticasone Propionate (Flonase Nasal [place]) 50 Mcg/Actuation [place], 2 SPRAY NS DAILY, #16 GM 0 Refills Prov:DARION WOODWARD CHEMISTRY INSTRUCTOR 04/07/24 Amoxicillin/Potassium Clav (Amox Tr-K Clv 875-125 mg Tab) 875 Mg-125 Mg Tablet, 1 TAB PO BID for 10 Days, #20 TAB 0 Refills Prov:DARION WOODWARD CHEMISTRY INSTRUCTOR 04/07/24 Cephalexin Monohydrate (Keflex) 500 Mg Cap, 500 MG PO QID for 7 Days, #28 CAP Prov:DORIS TUBBS Sr., MD 09/19/22 JANIYA SALAS MD Sep 17, 2024 10:30
--- NOTE | 2024-09-17 10:44 | OP ---
Operative Note: DATE OF PROCEDURE: 09/17/24 PREOPERATIVE DIAGNOSIS: Right knee osteoarthritis. POSTOPERATIVE DIAGNOSIS: Right knee osteoarthritis. PROCEDURE PERFORMED: Right knee total knee arthroplasty. SURGEON: Mikki Oden MD TITLE INSURANCE SALES REPRESENTATIVE: Keke Encinas and Naga Feliz. ANESTHESIA: General with adductor canal block. ANESTHESIA: PHYSICAL CHEMISTRY PROFESSOR Luis Manuel. ESTIMATED BLOOD LOSS: 50cc. COMPLICATIONS: None. DRAINS: None. SPECIMENS REMOVED: resected bone. Not sent to pathology. IMPLANTS: [employer] II BCS size 4 Oxinium femur, size 4 tibial base plate, 32 mm patella, 11 mm polyethylene STATEMENT OF MEDICAL NECESSITY: The patient is a 68-year-old female who suffers from right knee osteoarthritis failing conservative management. After discussion of the risks, benefits, and alternatives with the patient, they voluntarily agreed to undergo the aforementioned procedure. DESCRIPTION OF PROCEDURE: Patient was properly identified in the preoperative holding area. Surgical site marking was verified and surgery consent reviewed. The patient was then taken to the operating room and placed in supine position on the OR table. After induction of general anesthesia, preoperative antibiotics were given, all bony prominences were well-padded, and a well padded tourniquet was applied but not inflated at this time. The right lower extremity was then p repped and draped in usual sterile fashion. Surgical time out was done verifying correct surgery, side, site, and location to be performed. We then began the procedure by exsanguinating the limb using an Esmarch and inflating the tourniquet to 350 mmHg. At this point, we made an anterior midline incision using a 10 blade, coming down sharply the level of the fascia. Skin flaps were elevated medially and laterally. We then obtained a clean 10 blade and performed a standard medial parapatellar arthrotomy. We excised the infrapatellar fat pad. We performed our soft tissue releases off of the tibia. We transected the ACL and removed the anterior portion of the medial & lateral meniscus. We then brought the knee into hyperflexion with the patella everted. We used our entry reamer to enter the femoral canal. We then placed our intramedullary cutting guide for our distal femoral cutting block. We then performed our distal femoral osteotomy ensuring appropriate rotation and removed the bony wafer. We then removed these pins and block and then used jig 2 to size the distal femur with the after mentioned size found. We then placed our 5-in-1 cutting block in 3 degrees of external rotation and took our 5 cuts ensuring to protect the patellar tendon and the collateral ligaments. We then removed the cutting block and our bony fragments using a curved osteotome. We then placed our PCL retractor subluxating the tibia anteriorly. Using an extra medullary tibial cutting guide, we hung the block for our proximal tibial cut taking 2 mm off the more diseased portion. Prior to pinning this block in place, we ensured appropriate varus/valgus alignment and posterior slope similar to the [place] slope of the patient's knee. We then performed our proximal tibial osteotomy and removed the bony wafer using Bovie electrocautery to release any remaining soft tissue attachments. We then used our tibial sizing paddle and checked once more for varus & valgus alignment and found this to be appropriate. At this point, we pinned our tibial paddle in place. We then removed the PCL retractor and subluxated the tibia posteriorly while we placed our femoral trial component. We then finished preparing the notch with the reamer and box chisel. The notch portion of the trial femoral component was then placed. A posterior stabilized polyethylene, size 9 trial was placed. This was immediately increased to a size 10 polyethylene secondary to laxity with varus and valgus stress. The knee was then taken through range of motion and found to have stable full range of motion. We then placed a bump under the ankle and everted the patella to perform our freehand cut of the undersurface the patella. We then sized our patella and reamed to the lug holes for this. We placed our trial patellar component and begin to take the knee through range of motion. The patella had lateral tracking and we performed a lateral release. At this point we began removing our trial components and punched the tibial keel prior to removing our tibial trial component. Final components were opened and cement was mixed on the back table while we injected local cocktail in the posterior capsule. We then thoroughly irrigated out the bone and dried the bony surfaces. We cemented our tibial component in place ensuring to remove excess cement and placed our trial polyethylene. We then cemented our femoral component in place once again taking time to ensure excess cement was removed leg was brought into full extension to help squeeze the excess cement from around the femoral component. We then brought the knee back in a flexion to remove this portion of the cement at this point we placed the ankle in a bump thoroughly irrigated off the patellar component and cemented our patellar component in standard fashion again removing excess cement. While we waited for the cement to cure, we thoroughly irrigated out the wound with normal saline. Once our cement had cured, we took the knee through a range of motion and found full and stable range of motion. We then elected to use the size 11 polyethylene and removed our trial polyethylene. We impacted our final polyethylene component in place in standard fashion and took the knee through a range of motion check once more. This was satisfactory so we began to repair the arthrotomy using #5 Ethibond and #1 Vicryl in interrupted [id number] fashion. Subcutaneous tissue was repaired using 2-0 Vicryl. Running subcuticular 3-0 Monocryl stitch with Dermabond placed over this for the skin. We then applied a foam barrier dressing and a pressure dressing consisting of 4 x 4's fluffs and an Darryn wrap. The tourniquet was then deflated. Patient was awakened from anesthesia, and they were taken to the recovery room in stable condition. MIKKI ODEN MD Sep 17, 2024 10:44
[2024-09-17] MEDS: LACTATED RINGERS 1000ML 1,000 ML IV ONE (11:45)
[2024-09-17] MEDS: 0.9%NACL 1000ML 1,000 ML IV SCH (12:07)
--- NOTE | 2024-09-17 13:01 | HMCIMG ---
EXAM: CR right Knee, 2 View. CLINICAL HISTORY: S/P RT TKA SURGERY COMPARISON: Radiograph from July 30, 2024 FINDINGS: Cemented right total knee arthroplasty is in near anatomic alignment with no periprosthetic fracture appreciated. Postsurgical changes about the right knee, and a knee joint effusion. IMPRESSION: 1. No acute findings. Total knee arthroplasty in near anatomic alignment. /[place]
--- NOTE | 2024-09-17 15:15 | NUR ---
Ortho Coordinator: Teaching regarding DVT and pneumonia prevention, pain expectation and pain management. Patient up to to chair, family member at bedside. B SCD sleeves at bedside. Incentive spirometer at bedside. Patient return demonstrated proper use of incentive spirometer and was able to verbalized frequency of use. Patient return demonstrated proper foot flexion/extension exercises, rationale provided. Reviewed numeric pain scale. Patient instructed to set an alarm beginning at 1545 for every four hours. Instructed to perform a pain self assessment. Patient is to assign a numeric pain value and type of pain and call for primary nurse. Reminded patient pain medications are to be requested. Patient verbalized understanding. 1525 Report to primary nurse and COMMERCIAL LAWN SPECIALIST. Aware of need for SCD machine.
--- NOTE | 2024-09-17 18:02 | NUR ---
DC PLAN VISITED WITH PATIENT. PATIENT LIVES WITH SPOUSE. INDEPENDENT ABLE TO PERFORM ADL'S. PATIENT HAS NO SERVICES OR DME'S. SAID CHANGED MIND FROM IRU TO [facility]. SENT MESSAGE TO DR JOSUE HIGGINBOTHAM TO SEND REFERRAL. Addendum: 09/17/24 at 1808 by NEAL SILVERMAN RN CM Amended: Links added.
[2024-09-18] VITALS (7 sets, daily range): BP systolic 119–145; BP diastolic 51–65; PULSE 70–84; RESP 16–20; TEMP 97.6–98.6; O2SAT 91–97
[2024-09-18 04:22] LABS: NUCLEATED RED BLOOD CELLS 0.0 % (0.0-0.19); PLATELET COUNT (AUTO) 267.0 K/uL (130-400); RED BLOOD CELL COUNT(AUTO) 3.24 MIL/uL (4.00-5.50); RED CELL DISTRIBUTION WIDTH 13.2 % (11.0-15.5); WHITE BLOOD COUNT (AUTO) 10.3 K/uL (4.8-10.8)
[2024-09-18 04:39] LABS: CREATININE 1.0 mg/dL (0.5-1.0); GLOMERULAR FILTR. RATE CALC 62.0 mL/min (>90); GLUCOSE,RANDOM 128.0 mg/dL (70-105); SODIUM SERUM 142.0 mmol/L (136-145); UREA NITROGEN, BLOOD 16.0 mg/dL (7-18)
--- NOTE | 2024-09-18 07:51 | PN ---
Ortho postop day one. Patient is awake alert and oriented. Reporting mild to moderate pain. She is seated out of bed in chair. Patient is afebrile vital signs have remained stable. Voiding on her own. Operative findings discussed with the patient. Laboratory results reviewed. Noted to have a drop in hemoglobin and hematocrit as expected after TKA. Patient is asymptomatic we will continue to observe and address per protocol as necessary. Reinforced incentive spirometry. SCD sleeves currently present and on. I am does not have ice available but we will have nursing obtain some she is advised to use these throughout the day and throughout her recovery. The Darryn bandage has been removed. The anterior dressing is intact. Gastrocnemius soft nontender. Negative Homans. Ambulated with physical therapy about 30 ft yesterday. Pending further physical therapy this morning. Anticipated discharge goal is [facility]. Assessment: Status post right total knee arthroplasty. Asymptomatic acute postoperative blood loss anemia. Plan: Continue Dr. Oden's TKA protocol and discharge planning. Asymptomatic acute postoperative blood loss anemia addressed with protocol as necessary Vitals/Labs Vital Signs Date Time Temp Pulse Resp B/P (MAP) Pulse Ox O2 Delivery O2 Flow Rate FiO2 09/18/24 04:00 98.1 83 20 145/51 93 Room Air 09/17/24 20:00 0 21 Laboratory Tests 09/18/24 04:00 09/18/24 04:25 Medications Current Medications Cefazolin Sodium 2 gm STK-MED ONCE .ROUTE Last administered on 09/17/24at 09:09; Start 09/17/24 at 06:32; Stop 09/17/24 at 06:33; Status DC Lactated Ringer's 1,000 ml @ As Directed STK-MED ONCE IV; Start 09/17/24 at 06:33; Stop 09/17/24 at 06:33; Status DC Tranexamic Acid 1,000 mg STK-MED ONCE .ROUTE Last administered on 09/17/24at 09:00; Start 09/17/24 at 08:00; Stop 09/17/24 at 08:00; Status DC Ketorolac Tromethamine 30 mg STK-MED ONCE .ROUTE Last administered on 09/17/24at 09:51; Start 09/17/24 at 08:00; Stop 09/17/24 at 08:00; Status DC Ropivacaine 150 mg STK-MED ONCE .ROUTE Last administered on 09/17/24at 09:51; Start 09/17/24 at 08:00; Stop 09/17/24 at 08:01; Status DC Lidocaine HCl 100 mg STK-MED ONCE .ROUTE; Start 09/17/24 at 08:37; Stop 09/17/24 at 08:37; Status DC Ropivacaine 150 mg STK-MED ONCE .ROUTE; Start 09/17/24 at 08:37; Stop 09/17/24 at 08:37; Status DC Propofol 200 mg STK-MED ONCE IV; Start 09/17/24 at 08:37; Stop 09/17/24 at 08:37; Status DC Midazolam HCl 2 mg STK-MED ONCE .ROUTE; Start 09/17/24 at 08:37; Stop 09/17/24 at 08:38; Status DC Fentanyl Citrate 100 mcg STK-MED ONCE .ROUTE; Start 09/17/24 at 08:38; Stop 09/17/24 at 08:38; Status DC Rocuronium [place] 50 mg STK-MED ONCE .ROUTE; Start 09/17/24 at 08:42; Stop 09/17/24 at 08:43; Status DC Ropivacaine 150 mg STK-MED ONCE .ROUTE; Start 09/17/24 at 08:44; Stop 09/17/24 at 08:45; Status DC Sodium Chloride 1,000 ml @ 100 mls/hr Q10H IV Last administered on 09/17/24at 20:23; Start 09/17/24 at 09:30; Stop 09/18/24 at 09:29 Polyethylene Glycol 17 gm DAILY PO; Start 09/18/24 at 09:00; Stop 10/18/24 at 08:59 Bisacodyl 10 mg DAILY PRN RC; Start 09/20/24 at 09:30; Stop 10/20/24 at 09:29 Ketorolac Tromethamine 15 mg Q6H PRN IV; Start 09/18/24 at 09:30; Stop 09/23/24 at 09:29 Ferrous Fumarate 324 mg DAILY PRN PO; Start 09/17/24 at 09:30; Stop 10/17/24 at 09:29 Ondansetron HCl 4 mg Q6H PRN IVP; Start 09/17/24 at 09:30; Stop 10/17/24 at 09:29 Calcium Carbonate 500 mg Q12H PRN PO; Start 09/17/24 at 09:30; Stop 10/17/24 at 09:29 Cefazolin Sodium 2 gm Q8H IVP Last administered on 09/18/24at 01:14; Start 09/17/24 at 17:00; Stop 09/18/24 at 01:01; Status DC Cyclobenzaprine HCl 5 mg Q8H PRN PO; Start 09/17/24 at 09:30; Stop 10/17/24 at 09:29 Gabapentin 100 mg TID PO Last administered on 09/17/24at 20:23; Start 09/17/24 at 14:00; Stop 10/17/24 at 13:59 Aspirin 325 mg DAILY PO; Start 09/18/24 at 09:00; Stop 10/18/24 at 08:59 Ketorolac Tromethamine 15 mg Q8H IV Last administered on 09/18/24at 01:14; Start 09/17/24 at 09:30; Stop 09/18/24 at 01:31; Status DC Docusate Sodium 100 mg BID PO Last administered on 09/17/24at 20:21; Start 09/17/24 at 21:00; Stop 10/17/24 at 20:59 Potassium Chloride 100 ml @ 100 mls/hr AD PRN IV; Start 09/17/24 at 09:30; Stop 10/17/24 at 09:29 Potassium Chloride 20 meq AD PRN PO; Start 09/17/24 at 09:30; Stop 10/17/24 at 09:29 Potassium Chloride 20 meq AD PRN PO; Start 09/17/24 at 09:30; Stop 10/17/24 at 09:29 Tramadol HCl 50 mg Q6H PRN PO; Start 09/17/24 at 09:30; Stop 09/22/24 at 09:29 Acetaminophen/ Hydrocodone Bitart Q4H PRN PO; Start 09/17/24 at 09:30; Stop 09/17/24 at 09:24; Status DC Acetaminophen/ Hydrocodone Bitart 1 tab Q4H PRN PO; Start 09/17/24 at 09:30; Stop 09/22/24 at 09:29 Acetaminophen/ Hydrocodone Bitart 2 tab Q4H PRN PO; Start 09/17/24 at 09:30; Stop 09/22/24 at 09:29 Tranexamic Acid 1,000 mg STK-MED ONCE IV Last administered on 09/17/24at 00:00; Start 09/17/24 at 00:00; Stop 09/17/24 at 09:47; Status DC Ondansetron HCl 4 mg STK-MED ONCE .ROUTE; Start 09/17/24 at 10:16; Stop 09/17/24 at 10:16; Status DC Ketorolac Tromethamine 30 mg STK-MED ONCE .ROUTE; Start 09/17/24 at 10:16; Stop 09/17/24 at 10:16; Status DC Glycopyrrolate 1 mg STK-MED ONCE .ROUTE; Start 09/17/24 at 10:18; Stop 09/17/24 at 10:19; Status DC Neostigmine Methylsulfate 10 mg STK-MED ONCE IV; Start 09/17/24 at 10:18; Stop 09/17/24 at 10:19; Status DC Labetalol HCl 20 mg STK-MED ONCE IV; Start 09/17/24 at 10:55; Stop 09/17/24 at 10:55; Status DC Ketorolac Tromethamine 15 mg STK-MED ONCE .ROUTE; Start 09/17/24 at 11:07; Stop 09/17/24 at 11:07; Status DC MARIANGEL KUMAR PUBLIC HEALTH ADMINISTRATOR Sep 18, 2024 07:51
[2024-09-18] MEDS: ASPIRIN 325MG EC TAB PO SCH (08:00)
[2024-09-18] MEDS: HYDROcodone/APAP 5/325 1 TAB TABLET PO PRN ×2 (08:01→23:50)
[2024-09-18] MEDS: FAMOTIDINE 20MG TAB PO ONE (09:07)
--- NOTE | 2024-09-18 16:15 | NUR ---
Ortho Coordinator: Reinforced teaching. Patient up to chair. B SCD sleeves in room, machine in room. Ice pack to R knee. Patient states she did not complete 4 hours pain self assessments and has had significant pain. Reinforced numeric pain scale and frequency of self pain assessments. Encouraged patient to request medication for the lower pain scales and avoid pain reaching severe pain. Patient verbalized understanding. Expectation set for patient to shower today. Patient verbalized understanding. Patient intends to discharge to rehab. Reviewed next steps and rehab. No additional questions or concerns at this time.
[2024-09-19] VITALS (7 sets, daily range): BP systolic 120–146; BP diastolic 39–62; PULSE 73–94; RESP 16–20; TEMP 97.5–98.8; O2SAT 94–96
--- NOTE | 2024-09-19 08:41 | NUR ---
PT WAS FOUND SITTING ON THE CHAIR EATING BREAKFAST. PT IS A&0X4. PT C/O PAIN TO THE R. KNEE 08/21. PT VERBALIZES LBM WAS ON SATURDAY 09/16. PT VERBALIZED SHE HAS PASSED GAS. R. KNEE SLIGHT BRUISING AROUND KNEE AREA. DRESSING INTACT. SCANT AMOUNT OF SANGUIENOUS DRAINAGE NOTED ON DRESSING. INCENTIVE SPIROMETER TEACHING WAS GIVEN PT VERBALIZED UNDERSTANDING. NO S/S OF DISTRESS NOTED.
--- NOTE | 2024-09-19 15:20 | NUR ---
Ortho Coordinator: Reinforced teaching. Patient in bed. Reports receiving bed bath, encouraged patient to shower tonight or tomorrow. Pain more controlled today. Pain management strategy reviewed. Patient performing incentive spirometry as directed. No BM, passing gas. Encouraged patient to increase water intake, rationale provided. No additional questions/concerns at this time.
--- NOTE | 2024-09-19 16:40 | PN ---
Ortho postop day two Patient reports she is doing well. States she let her pain get out of control the 1st night but is doing better now. Through reports she is still pending a BM. She feels like she has been making good progress with physical therapy. Vital signs stable afebrile No acute distress alert and oriented x3 reclined in bed with the knee in slight flexion Nonlabored breathing Right lower extremity -knee with mild edema and moderate ecchymosis. -patient active extension is limited and lacking approximately 5. With passive stretching she can get full extension -normal amount of postoperative warmth and swelling Ambulates 50 ft with physical therapy in the last two PT visits Plan is for discharge to retirement facility, pending insurance authorization Postop day two status post right total knee arthroplasty doing well Acute blood loss anemia asymptomatic -continue my routine postoperative pain control and therapy -continue discharge planning. Vitals/Labs Vital Signs Date Time Temp Pulse Resp B/P (MAP) Pulse Ox O2 Delivery O2 Flow Rate FiO2 09/19/24 12:00 98.2 73 16 140/53 140 Room Air 21 09/19/24 08:31 0 Medications Current Medications Cefazolin Sodium 2 gm STK-MED ONCE .ROUTE Last administered on 09/17/24at 09:09; Start 09/17/24 at 06:32; Stop 09/17/24 at 06:33; Status DC Lactated Ringer's 1,000 ml @ As Directed STK-MED ONCE IV; Start 09/17/24 at 06:33; Stop 09/17/24 at 06:33; Status DC Tranexamic Acid 1,000 mg STK-MED ONCE .ROUTE Last administered on 09/17/24at 09:00; Start 09/17/24 at 08:00; Stop 09/17/24 at 08:00; Status DC Ketorolac Tromethamine 30 mg STK-MED ONCE .ROUTE Last administered on 09/17/24at 09:51; Start 09/17/24 at 08:00; Stop 09/17/24 at 08:00; Status DC Ropivacaine 150 mg STK-MED ONCE .ROUTE Last administered on 09/17/24at 09:51; Start 09/17/24 at 08:00; Stop 09/17/24 at 08:01; Status DC Lidocaine HCl 100 mg STK-MED ONCE .ROUTE; Start 09/17/24 at 08:37; Stop 09/17/24 at 08:37; Status DC Ropivacaine 150 mg STK-MED ONCE .ROUTE; Start 09/17/24 at 08:37; Stop 09/17/24 at 08:37; Status DC Propofol 200 mg STK-MED ONCE IV; Start 09/17/24 at 08:37; Stop 09/17/24 at 08:37; Status DC Midazolam HCl 2 mg STK-MED ONCE .ROUTE; Start 09/17/24 at 08:37; Stop 09/17/24 at 08:38; Status DC Fentanyl Citrate 100 mcg STK-MED ONCE .ROUTE; Start 09/17/24 at 08:38; Stop 09/17/24 at 08:38; Status DC Rocuronium [place] 50 mg STK-MED ONCE .ROUTE; Start 09/17/24 at 08:42; Stop 09/17/24 at 08:43; Status DC Ropivacaine 150 mg STK-MED ONCE .ROUTE; Start 09/17/24 at 08:44; Stop 09/17/24 at 08:45; Status DC Sodium Chloride 1,000 ml @ 100 mls/hr Q10H IV Last administered on 09/17/24at 20:23; Start 09/17/24 at 09:30; Stop 09/18/24 at 09:29; Status DC Polyethylene Glycol 17 gm DAILY PO Last administered on 09/19/24at 08:28; Start 09/18/24 at 09:00; Stop 10/18/24 at 08:59 Bisacodyl 10 mg DAILY PRN RC; Start 09/20/24 at 09:30; Stop 10/20/24 at 09:29 Ketorolac Tromethamine 15 mg Q6H PRN IV Last administered on 09/18/24at 20:48; Start 09/18/24 at 09:30; Stop 09/23/24 at 09:29 Ferrous Fumarate 324 mg DAILY PRN PO; Start 09/17/24 at 09:30; Stop 10/17/24 at 09:29 Ondansetron HCl 4 mg Q6H PRN IVP; Start 09/17/24 at 09:30; Stop 10/17/24 at 09:29 Calcium Carbonate 500 mg Q12H PRN PO; Start 09/17/24 at 09:30; Stop 10/17/24 at 09:29 Cefazolin Sodium 2 gm Q8H IVP Last administered on 09/18/24at 01:14; Start 09/17/24 at 17:00; Stop 09/18/24 at 01:01; Status DC Cyclobenzaprine HCl 5 mg Q8H PRN PO; Start 09/17/24 at 09:30; Stop 10/17/24 at 09:29 Gabapentin 100 mg TID PO Last administered on 09/19/24at 14:40; Start 09/17/24 at 14:00; Stop 10/17/24 at 13:59 Aspirin 325 mg DAILY PO Last administered on 09/19/24at 08:27; Start 09/18/24 at 09:00; Stop 10/18/24 at 08:59 Ketorolac Tromethamine 15 mg Q8H IV Last administered on 09/18/24at 01:14; Start 09/17/24 at 09:30; Stop 09/18/24 at 01:31; Status DC Docusate Sodium 100 mg BID PO Last administered on 09/19/24at 08:28; Start 09/17/24 at 21:00; Stop 10/17/24 at 20:59 Potassium Chloride 100 ml @ 100 mls/hr AD PRN IV; Start 09/17/24 at 09:30; Stop 10/17/24 at 09:29 Potassium Chloride 20 meq AD PRN PO; Start 09/17/24 at 09:30; Stop 10/17/24 at 09:29 Potassium Chloride 20 meq AD PRN PO; Start 09/17/24 at 09:30; Stop 10/17/24 at 09:29 Tramadol HCl 50 mg Q6H PRN PO; Start 09/17/24 at 09:30; Stop 09/22/24 at 09:29 Acetaminophen/ Hydrocodone Bitart Q4H PRN PO; Start 09/17/24 at 09:30; Stop 09/17/24 at 09:24; Status DC Acetaminophen/ Hydrocodone Bitart 1 tab Q4H PRN PO Last administered on 09/19/24at 12:29; Start 09/17/24 at 09:30; Stop 09/22/24 at 09:29 Acetaminophen/ Hydrocodone Bitart 2 tab Q4H PRN PO Last administered on 09/18/24at 17:05; Start 09/17/24 at 09:30; Stop 09/22/24 at 09:29 Tranexamic Acid 1,000 mg STK-MED ONCE IV Last administered on 09/17/24at 00:00; Start 09/17/24 at 00:00; Stop 09/17/24 at 09:47; Status DC Ondansetron HCl 4 mg STK-MED ONCE .ROUTE; Start 09/17/24 at 10:16; Stop 09/17/24 at 10:16; Status DC Ketorolac Tromethamine 30 mg STK-MED ONCE .ROUTE; Start 09/17/24 at 10:16; Stop 09/17/24 at 10:16; Status DC Glycopyrrolate 1 mg STK-MED ONCE .ROUTE; Start 09/17/24 at 10:18; Stop 09/17/24 at 10:19; Status DC Neostigmine Methylsulfate 10 mg STK-MED ONCE IV; Start 09/17/24 at 10:18; Stop 09/17/24 at 10:19; Status DC Labetalol HCl 20 mg STK-MED ONCE IV; Start 09/17/24 at 10:55; Stop 09/17/24 at 10:55; Status DC Ketorolac Tromethamine 15 mg STK-MED ONCE .ROUTE; Start 09/17/24 at 11:07; Stop 09/17/24 at 11:07; Status DC Famotidine 20 mg DAILY06 ONCE PO Last administered on 09/18/24at 09:07; Start 09/18/24 at 08:30; Stop 09/18/24 at 08:31; Status DC JANIYA SALAS MD Sep 19, 2024 16:40
--- NOTE | 2024-09-19 20:30 | NUR ---
PT SITTING ON BEDSIDE CHAIR, AT BEDSIDE. RIGHT TOTAL KNEE ARTHROPLASTY DONE 09/17 DRESSING DRY/INTACT, NON-PITTING SWELLING, STRONG PULSE NOTED. VOICES NO PAIN/DISCOMFORTS AT THE MOMENT. PT DID RETURN DEMONSTRATION ON . PT HAS NOT HAD A BOWEL MOVEMENT SINCE 09/16 SCHEDULED COLACE GIVEN. OFFERED TO GIVE WARM PRUNE JUICE BUT STATES SHE WOULD RATHER HAVE IN AM. ENCOURAGED TO USE CALL LIGHT FOR ASSISTANCE, CALL [facility] WITHIN REACH.
[2024-09-20] VITALS: BP 137/49; PULSE 88; RESP 18; TEMP 99
[2024-09-20 08:00] VITALS: BP 155/54; PULSE 88; RESP 18; TEMP 98.4
[2024-09-20 09:11] VITALS: O2SAT 96
[2024-09-20 12:00] VITALS: BP 138/47; PULSE 87; RESP 18; TEMP 98.6
[2024-09-20] MEDS ORDERED: CYCL-309 PO (12:56)
[2024-09-20] MEDS ORDERED: HYDR-4060 PO (12:56)
[2024-09-20] MEDS ORDERED: ASPI-891 PO (12:56)
[2024-09-20] MEDS ORDERED: DOCU-116 PO (12:56)
[2024-09-20] MEDS ORDERED: GABA100C PO (12:56)
--- NOTE | 2024-09-20 13:05 | NUR ---
Ortho Coordinator: Patient working with physical therapy.
--- NOTE | 2024-09-20 14:08 | NUR ---
Discharge Report called in to NIKITA Garza, at [facility].
--- NOTE | 2024-09-20 16:10 | NUR ---
DISCHARGED PT WAS TRANSPORTED TO THE MAIN ENTRANCE VIA W/C BY [facility] ARTIFICIAL INTELLIGENCE SPECIALIST. NO S/S OF DISTRESS NOTED.
== END 2024-09-20 14:10 ==
LOC: DAH 06:17 → DAHIP 06:18 → DAH 06:18 → 4AH 11:45
PROVIDERS: ADMIT Student in an Organized Health Care Education/Training Program; ATTEND Student in an Organized Health Care Education/Training Program
DX: M17.11 Unilateral primary osteoarthritis, right knee (principal); G89.18 Other acute postprocedural pain; M25.561 Pain in right knee; D62 Acute posthemorrhagic anemia; Z98.890 Other specified postprocedural states; Z79.899 Other long term (current) drug therapy
CPT/HCPCS: 85025; 85730; 87086; 84134; 86140; 81001; 36415 ×2; 93005; 87641; 27447; 96365; 96375; 64447; 82948 ×11; 73560; 97161; 97116 ×7; 96376 ×2; 80048; 85027; 97530 ×7; G0378 ×77; A4663; J7120 ×2; J3010; J3490 ×4; J2003; J2250; J2704; J2405; J1885 ×7; J2710; J2795 ×3; J0690 ×3; C1713 ×2; C1776 ×2; A4649 ×2; A4930 ×2; A6255; A5120; A4215; A4223 ×2; A4213; A4222; A4221; A4216